=== PATIENT | female | born 1985 | race Caucasian/White ===

== ENCOUNTER 2024-05-09 05:42 | Observation (INO) | payer BC ==
[2024-05-01 14:40] LABS: BILIRUBIN,URINE NEGATIVE (Neg); CLARITY,URINE CLEAR (Clear); COLOR,URINE YELLOW (Yellow); GLUCOSE, URINE NEGATIVE (Neg); KETONES,URINE NEGATIVE (Neg); LEUKOCYTE ESTERASE ,URINE NEGATIVE (Neg); NITRITES, URINE NEGATIVE (Neg); OCCULT BLOOD,URINE NEGATIVE (Neg); PROTEIN,URINE NEGATIVE (Neg); UROBILINOGEN,URINE 0.2 E.U/dL (0.2-1.0)
[2024-05-01 14:45] LABS: BASOPHILS % (AUTO) 0.3 % (0-1); EOSINOPHILS # (AUTO) 0.1 X10'3 (0-0.9); EOSINOPHILS % (AUTO) 1.4 % (0-6); LYMPHOCYTES % (AUTO) 23.5 % (21-51); MEAN CORPUSCULAR HEMOGLOBIN 33.1 PG (27.0-31.0); MEAN CORPUSCULAR HGB CONC 34.7 g/dL (33.0-36.5); MEAN CORPUSCULAR VOLUME 95.4 FL (78-98); MEAN PLATELET VOLUME 7.3 FL (7.4-10.4); MONOCYTES # (AUTO) 0.6 X10'3 (0-0.9); MONOCYTES % (AUTO) 7.2 % (2-12); NEUTROPHILS # (AUTO) 5.7 X10'3 (1.8-7.7); NEUTROPHILS % (AUTO) 67.6 % (42-75); PRE OP HEMATOCRIT 42.4 % (35.0-45.0); PRE OP HEMOGLOBIN 14.7 g/dL (12.0-16.0); PRE OP PLATELET COUNT 270 X10'3 (140-440); PRE OP WHITE BLOOD COUNT 8.4 10'3 (4.8-10.8); RED BLOOD COUNT 4.45 X10'6 (4.20-5.60)
[2024-05-01 14:48] LABS: UA COLLECTION TYPE CLN CATCH MIDSTREAM
[2024-05-01 14:54] LABS: HCG SERUM QL NEGATIVE
[2024-05-01 14:57] LABS: ALBUMIN 4.2 G/DL (3.4-5.0); ALBUMIN/GLOBULIN RATIO 1.1 (1.1-1.5); ALKALINE PHOSPHATASE 70 IU/L (46-116); BLOOD UREA NITROGEN 16 MG/DL (7-18); BUN/CREATININE RATIO 15.1 (10.0-20.0); CALCIUM 8.9 MG/DL (8.5-10.1); CHLORIDE 105 MMOL/L (99-107); CREATININE 1.06 MG/DL (0.40-0.90); PRE OP ALT 14 U/L (30-65); PRE OP ANION GAP 4 (8-16); PRE OP AST 11 U/L (10-37); PRE OP BILIRUB, TOTAL 0.5 MG/DL (0.0-1.0); PRE OP GLUCOSE 89 MG/DL (70-104); PRE OP POTASSIUM 4.1 MMOL/L (3.4-5.1); PRE OP SODIUM 140 MMOL/L (135-145); TOTAL CARBON DIOXIDE 30.9 MMOL/L (24-32); TOTAL PROTEIN 7.9 G/DL (6.4-8.2); eGFR 57 ML/MIN
[2024-05-09] VITALS (23 sets, daily range): BP systolic 86–128; BP diastolic 40–82; PULSE 61–96; RESP 11–18; TEMP 98.4–98.6; O2SAT 94–100
[~2024-05-09] VITALS: Ht 162.6 cm; Wt 86.2 kg
[~2024-05-09 05:42] MED LIST: BORON; DHEA; GABA300C PO; POTASSIUM; PROG200C11 PO; QUERCETIN; [UNRECOGNIZED DRUG - OTHER]; [UNRECOGNIZED DRUG - OTHER]; [UNRECOGNIZED DRUG - OTHER]
[2024-05-09] MEDS: ceFOXitin sod/dextrose 2g/50ml 50 ML IV ONE (06:07)
[2024-05-09] MEDS: famotidine 20mg tablet PO ONE (06:08)
[2024-05-09] MEDS: ringers solution, lacted 1,000 ML IV SCH ×3 (06:09→12:15)
[2024-05-09] MEDS ORDERED: clindamycin phosphate 40gm vag cream ONE (06:37)
[2024-05-09] MEDS ORDERED: vasoPRESSIN 20 units/ml inj. ONE (06:38)
[2024-05-09] MEDS ORDERED: neomy sulf/polymyxin B sulf. GU irrigation 1ml amp IR ONE (06:38)
[2024-05-09] MEDS ORDERED: BUPIVAcaine 2.5mg/ml inj 50ml vial (contains preservative) ONE (06:38)
[2024-05-09] MEDS ORDERED: midazolam 1 mg/ML 2ml injection ONE (07:24)
[2024-05-09] MEDS ORDERED: fentaNYL /PF 50mcg/ml 5ml ampule ONE (07:25)
[2024-05-09] MEDS ORDERED: propofol inj 20 ML IV ONE (07:25)
[2024-05-09] MEDS ORDERED: rocuronium 10mg/ml inj IV ONE (07:26)
[2024-05-09] MEDS ORDERED: LIDOcaine 2% (20mg/ml) 5ml vial ONE (07:26)
[2024-05-09] MEDS ORDERED: dexamethasone sod phosphate 4mg/ml inj. ONE (07:27)
[2024-05-09] MEDS ORDERED: ondansetron/PF 4mg/2ml inj ONE (07:27)
[2024-05-09] MEDS ORDERED: enalaprilat 1.25mg/ml 2ml vial IV PRN (07:30)
[2024-05-09] MEDS ORDERED: labetalol 20mg/4ml (5mg/ml) syringe IV PRN (07:30)
[2024-05-09] MEDS ORDERED: morphine 4 MG/ML inj SYRINge IV PRN (07:30)
[2024-05-09] MEDS ORDERED: meperidine/PF 25mg/ml syringe IV PRN ×2 (07:30)
[2024-05-09] MEDS ORDERED: sevoflurane 250ml liquid IH ONE (07:31)
[2024-05-09] MEDS ORDERED: acetaminophen 1,000mg/100ml IV 100 ML IV ONE (08:17)
[2024-05-09] MEDS ORDERED: ondansetron/PF 4mg/2ml inj IV PRN (12:15)
[2024-05-09] MEDS ORDERED: normal saline 500ml IV soln 500 ML IV PRN (12:15)
[2024-05-09] MEDS ORDERED: magnesium hydroxide 30ml (MOM) UD suspension PO PRN (12:15)
[2024-05-09] MEDS ORDERED: LORazepam 2 mg/ml vial IV PRN (12:15)
[2024-05-09] MEDS ORDERED: temazepam 15mg capsule PO PRN (12:15)
[2024-05-09] MEDS ORDERED: metoclopramide 5 mg/ml inj IV PRN (12:15)
[2024-05-09] MEDS ORDERED: HYDROcodone/acetaminophen 10/325mg tab PO PRN (12:15)
[2024-05-09] MEDS ORDERED: diphenhydrAMINE 50 mg/ml inj IV PRN (12:15)
[2024-05-09] MEDS: ondansetron/PF 4mg/2ml inj IV PRN (13:34)
[2024-05-09] MEDS: meperidine/PF 25mg/ml syringe IV PRN (14:29)
[2024-05-09] MEDS: proCHLORperazine 10 MG/2 ml inj IV PRN (14:33)
[2024-05-09] MEDS: morphine 2 MG/ML inj. syringe IV PRN (15:56)
[2024-05-09] MEDS: docusate sod 100mg capsule PO SCH (20:00)
[2024-05-09] MEDS: HYDROcodone/acetaminophen 10/325mg tab PO PRN (21:22)
[2024-05-10 02:00] VITALS: BP 124/65; PULSE 96; RESP 14; TEMP 98.1; O2SAT 97
[2024-05-10 04:36] LABS: BASOPHILS % (AUTO) 0.1 % (0-1); EOSINOPHILS % (AUTO) 0.1 % (0-6); HEMATOCRIT 33.4 % (35.0-45.0); HEMOGLOBIN 11.8 g/dl (12.0-16.0); LYMPHOCYTES # (AUTO) 1.5 X10'3 (1.1-4.8); LYMPHOCYTES % (AUTO) 11.3 % (21-51); MEAN CORPUSCULAR HEMOGLOBIN 33.5 PG (27.0-31.0); MEAN CORPUSCULAR HGB CONC 35.2 g/dL (33.0-36.5); MEAN PLATELET VOLUME 7.2 FL (7.4-10.4); MONOCYTES # (AUTO) 0.9 X10'3 (0-0.9); MONOCYTES % (AUTO) 7.2 % (2-12); NEUTROPHILS # (AUTO) 10.6 X10'3 (1.8-7.7); NEUTROPHILS % (AUTO) 81.3 % (42-75); PLATELET COUNT 196 X10'3 (140-440); RED BLOOD COUNT 3.52 X10'6 (4.20-5.60); RED CELL DISTRIBUTION WIDTH 11.8 % (11.5-14.5)
[2024-05-10 04:52] LABS: ALBUMIN 3.1 G/DL (3.4-5.0); ANION GAP 7 (8-16); BLOOD UREA NITROGEN 10 MG/DL (7-18); BUN/CREATININE RATIO 16.7 (10.0-20.0); CHLORIDE 106 MMOL/L (99-107); GLUCOSE 94 MG/DL (70-104); POTASSIUM 4.2 MMOL/L (3.5-5.1); SODIUM 138 MMOL/L (135-145); TOTAL CARBON DIOXIDE 25.1 MMOL/L (24-32); eCRCL 107 ML/MIN; eGFR > 90 ML/MIN
[2024-05-10 06:00] VITALS: BP 137/89; PULSE 82; RESP 14; TEMP 98.3; O2SAT 98
[2024-05-10 08:30] VITALS: RESP 16; O2SAT 98
[2024-05-10 10:30] VITALS: RESP 16
== END 2024-05-10 13:30 | disposition home or self-care (01) ==
LOC: PAS 05:42 → SUR 3N 14:47 → PAS 17:03 → SUR 3N 17:04
PROVIDERS: ADMIT Obstetrics & Gynecology Obstetrics; ATTEND Obstetrics & Gynecology Obstetrics
DX: N81.9 Female genital prolapse, unspecified (principal); N81.3 Complete uterovaginal prolapse; N39.0 Urinary tract infection, site not specified; G89.18 Other acute postprocedural pain; E66.9 Obesity, unspecified; Z90.710 Acquired absence of both cervix and uterus; Z79.899 Other long term (current) drug therapy; Z68.32 Body mass index [BMI] 32.0-32.9, adult
CPT/HCPCS: 36415; 57260; 58552; 71046; 80048; 80053; 81003; 82948; 84703; 85025; 87081; 96374; G0378; J0131; J0694; J0780; J1100; J2003; J2175; J2250; J2270; J2405; J2704; J3010; J3490; J7030; J7120; A4314; A4618; A7000